=== PATIENT | female | born 1970 | race Caucasian/White ===

== ENCOUNTER → 2020-11-28 | Day surgery (SDC) | payer OTHER ==
[~2020-11-28] MED LIST: ZESTRIL10 MG PO
[2020-11-28 08:28] LABS: HEMOGLOBIN 14.3 gm/dl (12.3-15.3); RED BLOOD COUNT 4.61 M/UL (4.00-5.10); WHITE BLOOD COUNT 7.8 K/UL (4.5-11.0)
[2020-11-28 08:55] LABS: BUN/CREATININE RATIO 19 (0-10)
== END | disposition home or self-care (01) ==
LOC: LAB 07:42
PROVIDERS: Internal Medicine
DX: R05 Cough (principal); R53.83 Other fatigue; E03.9 Hypothyroidism, unspecified; E55.9 Vitamin D deficiency, unspecified; Z79.899 Other long term (current) drug therapy
CPT/HCPCS: 36415; 71046; 80053; 80061; 82607; 82746; 84439; 84443; 85025

== ENCOUNTER → 2020-12-01 | Outpatient (CLI) | payer OTHER | LOC: EXRD 11:15 | DX: C64.2 Malignant neoplasm of left kidney, except renal pelvis (principal) | CPT/HCPCS: 76775 ==

== ENCOUNTER → 2020-12-11 | Outpatient (CLI) | payer OTHER | LOC: MAMO 11:47 | DX: N64.4 Mastodynia (principal) | CPT/HCPCS: 77065 ==

== ENCOUNTER → 2020-12-25 | Outpatient (CLI) | payer OTHER | LOC: CT 13:45 | DX: C64.2 Malignant neoplasm of left kidney, except renal pelvis (principal); N26.1 Atrophy of kidney (terminal) | CPT/HCPCS: 74170; Q9967 ==

== ENCOUNTER 2021-03-19 11:18 | Emergency (ER) | payer OTHER ==
[2021-03-19 12:59] LABS: HEMOGLOBIN 14.2 gm/dl (12.3-15.3); RED BLOOD COUNT 4.6 M/UL (4.00-5.10)
[2021-03-19] MEDS ORDERED: ZESTRIL10 MG PO (13:33)
== END 2021-03-19 13:55 | disposition home or self-care (01) ==
LOC: ER1 11:18
PROVIDERS: Physician Assistant
DX: I10 Essential (primary) hypertension (principal); E03.9 Hypothyroidism, unspecified
CPT/HCPCS: 80053; 81001; 82550; 82553; 83874; 84484; 85025; 93005; 99283

== ENCOUNTER 2021-03-25 09:11 | Emergency (ER) | payer OTHER | END 2021-03-25 11:57 | disposition home or self-care (01) | LOC: ER1 09:11 | DX: S50.12XA Contusion of left forearm, initial encounter (principal); I10 Essential (primary) hypertension; E03.9 Hypothyroidism, unspecified; Z86.711 Personal history of pulmonary embolism; Z85.528 Personal history of other malignant neoplasm of kidney; W22.8XXA Striking against or struck by other objects, initial encounter | CPT/HCPCS: 93971; 99283 ==

== ENCOUNTER → 2021-06-02 | Outpatient (CLI) | payer OTHER ==
[2021-06-02 08:47] LABS: BUN/CREATININE RATIO 10 (0-10)
[2021-06-03 07:10] LABS: VITAMIN D, 25-HYDROXY 14.6 ng/mL (30.0-100.0)
[2021-06-03 08:14] LABS: RHEUMATOID ARTHRITIS FACTOR <10.0 IU/mL (0.0-13.9)
== END ==
LOC: LAB 06:50
PROVIDERS: Internal Medicine
DX: Z13.1 Encounter for screening for diabetes mellitus (principal); E78.5 Hyperlipidemia, unspecified; I10 Essential (primary) hypertension; Z79.899 Other long term (current) drug therapy; M25.50 Pain in unspecified joint; E55.9 Vitamin D deficiency, unspecified
CPT/HCPCS: 36415; 80053; 80061; 83036; 84439; 84443; 86200; 86431

== ENCOUNTER → 2021-06-08 | Outpatient (CLI) | payer OTHER | LOC: EXRD 12:57 | DX: R22.31 Localized swelling, mass and lump, right upper limb (principal) | CPT/HCPCS: 76882 ==

== ENCOUNTER → 2021-08-18 | Outpatient (CLI) | payer OTHER | LOC: MAMO 06-04 14:00 → US 06-24 10:00 → MAMO 06-24 14:00 → US 06-24 14:30 → MAMO 07-23 13:00 → US 07-23 13:30 → MAMO 11:20 | DX: Z12.31 Encounter for screening mammogram for malignant neoplasm of breast (principal); N64.4 Mastodynia | CPT/HCPCS: 77063; 77067 ==

== ENCOUNTER → 2021-10-01 | Outpatient (CLI) | payer OTHER | LOC: EROP 12:39 | DX: Z20.822 Contact with and (suspected) exposure to COVID-19 (principal) | CPT/HCPCS: U0002 ==

== ENCOUNTER → 2021-12-02 | Outpatient (CLI) | payer OTHER ==
[2021-12-02 08:10] LABS: HEMOGLOBIN 14.6 gm/dl (12.3-15.3); RED BLOOD COUNT 4.88 M/UL (4.00-5.10); WHITE BLOOD COUNT 5.9 K/UL (4.5-11.0)
[2021-12-02 09:32] LABS: BUN/CREATININE RATIO 8 (0-10)
[2021-12-03 07:12] LABS: RHEUMATOID ARTHRITIS FACTOR <10.0 IU/mL (<14.0)
== END ==
LOC: LAB 07:33
PROVIDERS: Internal Medicine
DX: Z13.1 Encounter for screening for diabetes mellitus (principal); Z51.81 Encounter for therapeutic drug level monitoring; R53.83 Other fatigue; I10 Essential (primary) hypertension; E03.9 Hypothyroidism, unspecified; Z79.899 Other long term (current) drug therapy; M25.50 Pain in unspecified joint
CPT/HCPCS: 36415; 80053; 80061; 82550; 82607; 82746; 83036; 84439; 84443; 84550; 85025; 85027; 85652; 86038; 86140; 86200; 86431

== ENCOUNTER → 2021-12-31 | Outpatient (CLI) | payer OTHER | LOC: EXRD 11:24 | DX: Z13.820 Encounter for screening for osteoporosis (principal) | CPT/HCPCS: 77080 ==

== ENCOUNTER → 2022-01-14 | Outpatient (CLI) | payer OTHER | LOC: CT 12:10 | DX: C64.2 Malignant neoplasm of left kidney, except renal pelvis (principal); R91.1 Solitary pulmonary nodule | CPT/HCPCS: 36415; 71250; 74170; 82565; 84520; Q9967 ==

== ENCOUNTER → 2022-03-17 | Day surgery (SDC) | payer OTHER ==
[~2022-03-17] VITALS: Ht 177.8 cm; Wt 147.0 kg
[~2022-03-17] MED LIST changes: +COZAAR 25MG TAB25 MG PO; +IBU400 MG PO; +LEVOTHYROXINE75 MCG PO; +VENLAFAXINE HC150 MG PO; +VITAMIN D21250 MCG PO; +ZOFRAN 4 MG TAB4 MG PO
== END | disposition home or self-care (01) ==
LOC: OR 03-10 08:15
DX: K57.30 Diverticulosis of large intestine without perforation or abscess without bleeding (principal); K80.20 Calculus of gallbladder without cholecystitis without obstruction; I10 Essential (primary) hypertension; E03.9 Hypothyroidism, unspecified; G47.33 Obstructive sleep apnea (adult) (pediatric); E66.9 Obesity, unspecified; Z99.89 Dependence on other enabling machines and devices; Z68.42 Body mass index [BMI] 45.0-49.9, adult; Z88.5 Allergy status to narcotic agent; Z79.899 Other long term (current) drug therapy; Z87.891 Personal history of nicotine dependence; Z72.89 Other problems related to lifestyle
CPT/HCPCS: J2704

== ENCOUNTER → 2022-05-28 | Outpatient (CLI) | payer OTHER ==
[2022-05-28 09:04] LABS: HEMOGLOBIN 13.3 gm/dl (12.3-15.3); RED BLOOD COUNT 4.3 M/UL (4.00-5.10); WHITE BLOOD COUNT 5.5 K/UL (4.5-11.0)
[2022-05-28 09:40] LABS: BUN/CREATININE RATIO 13 (0-10)
== END ==
LOC: LAB 07:50
PROVIDERS: Internal Medicine
DX: R53.83 Other fatigue (principal); R51.9 Headache, unspecified; E78.5 Hyperlipidemia, unspecified; I10 Essential (primary) hypertension; R73.01 Impaired fasting glucose; Z51.81 Encounter for therapeutic drug level monitoring; Z79.899 Other long term (current) drug therapy; R21 Rash and other nonspecific skin eruption; E55.9 Vitamin D deficiency, unspecified
CPT/HCPCS: 36415; 80053; 80061; 82607; 82746; 83036; 84439; 84443; 85025; 85652; 86140

== ENCOUNTER → 2022-06-08 | Outpatient (CLI) | payer OTHER | LOC: US 09:10 → MRI 14:00 | DX: H53.139 Sudden visual loss, unspecified eye (principal); E04.2 Nontoxic multinodular goiter; I65.23 Occlusion and stenosis of bilateral carotid arteries | CPT/HCPCS: 93880 ==